=== PATIENT | male | born 1990 | race Caucasian/White ===

== ENCOUNTER 2019-02-26 13:44 | Emergency (ER) | payer OTHER ==
[2019-02-26] MEDS ORDERED: Adacel (T-DAP) 0.5 ML SYRINGE ONE (13:55)
== END 2019-02-26 14:11 | disposition home or self-care (01) ==
LOC: NAV ERS 13:44
DX: S61.452A Open bite of left hand, initial encounter (principal); S60.511A Abrasion of right hand, initial encounter; S60.512A Abrasion of left hand, initial encounter; I10 Essential (primary) hypertension; Z79.899 Other long term (current) drug therapy; F98.8 Other specified behavioral and emotional disorders with onset usually occurring in childhood and adolescence; Y04.1XXA Assault by human bite, initial encounter; F17.210 Nicotine dependence, cigarettes, uncomplicated
CPT/HCPCS: 90471; 90715